=== PATIENT | female | born 1970 | race Caucasian/White ===

== ENCOUNTER 2017-01-31 07:05 | Day surgery (SDC) | payer OTHER ==
[2017-01-31] MEDS ORDERED: Lactated Ringer's 500 ML IV ONE (07:31)
[2017-01-31] MEDS ORDERED: Propofol 10 mg/ml Inj (20 ML) ONE ×2 (07:57→09:41)
[2017-01-31] MEDS ORDERED: Midazolam 2 MG/2 ML VIAL ONE (07:57)
[2017-01-31] MEDS ORDERED: ePHEDrine 50 mg/ml Inj ONE (09:21)
[2017-01-31 09:57] VITALS: BP 99/52; PULSE 85; RESP 19; TEMP 97; O2SAT 99
== END 2017-01-31 10:28 | disposition home or self-care (01) ==
LOC: H.ENDO 07:05
PROVIDERS: ATTEND Internal Medicine Gastroenterology
DX: R19.5 Other fecal abnormalities (principal); D64.9 Anemia, unspecified; E03.9 Hypothyroidism, unspecified; K64.8 Other hemorrhoids
CPT/HCPCS: 45378; 88305; J2250; J2704; J7120